=== PATIENT | male | born 1995 | race American Indian/Alaskan Native ===

== ENCOUNTER 2018-03-28 00:41 | Emergency (ER) | payer MEDICAID ==
[2018-03-28 00:54] VITALS: BMI 23.7
[2018-03-28] MEDS ORDERED: Oxycodone/Acetaminophen 5/325 mg Tab PO STA (01:24)
[2018-03-28 01:27] VITALS: TEMP 98.2
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
[2018-03-28] MEDS ORDERED: Lidocaine 2% Inj (20ml) INFIL STA (02:40)
[2018-03-28 04:35] VITALS: BP 135/70; PULSE 84; RESP 18; O2SAT 100
--- NOTE | 2018-03-28 09:34 | RAD ---
PROCEDURE: Radiographs of the right elbow. HISTORY: Trauma COMPARISON: No prior. FINDINGS: BONES: Normal. No fracture. JOINTS: Normal. No osteoarthritis. SOFT TISSUES: Normal. JOINT EFFUSION: None. OTHER FINDINGS: None. IMPRESSION: Unremarkable radiographs of the right elbow.
--- NOTE | 2018-03-28 09:36 | RAD ---
PROCEDURE: Left Hand Radiographs. HISTORY: fall COMPARISON: None. FINDINGS: BONES: Normal. No fracture. JOINTS: Normal. No osteoarthritic changes. SOFT TISSUES: Soft tissue injury, laceration adjacent to the 5th metacarpal. Punctate foreign bodies identified at the site of the laceration. OTHER FINDINGS: None. IMPRESSION: Soft tissue injury including laceration and punctate foreign bodies at the level of the midshaft left 5th metacarpal. No acute osseous abnormalities.
--- NOTE | 2018-03-28 09:37 | RAD ---
PROCEDURE: Right Knee Radiographs. HISTORY: fall COMPARISON: None. FINDINGS: BONES: Normal. No fracture. JOINTS: Normal. No osteoarthritis. JOINT EFFUSION: Small suprapatellar joint effusion. OTHER FINDINGS: None. IMPRESSION: Small suprapatellar joint effusion. No acute osseous or articular abnormalities.
--- NOTE | 2018-03-28 09:39 | RAD ---
PROCEDURE: Radiographs of the Chest and Right Ribs. HISTORY: fall COMPARISON: None available. TECHNIQUE: Frontal radiograph of the chest and multiple oblique radiographs of the right ribs were obtained. FINDINGS: RIGHT RIBS: No fracture or focal lesion visualized. LUNGS: Clear. PLEURA: No pneumothorax or pleural fluid. CARDIOVASCULAR: Normal sized heart. No pulmonary vascular congestion. OTHER FINDINGS: None. IMPRESSION: Unremarkable radiographs of the chest and right ribs. No right rib fracture.
--- NOTE | 2018-03-28 09:44 | RAD ---
PROCEDURE: Radiographs of the right tibia and fibula. HISTORY: fall COMPARISON: None available. TECHNIQUE: Frontal and lateral views obtained. FINDINGS: BONES: No fracture or destructive lesion. JOINT SPACES: Unremarkable. OTHER FINDINGS: Soft tissue swelling about the calf IMPRESSION: Soft tissue swelling without acute articular or osseous abnormality.
--- NOTE | 2018-03-28 09:46 | RAD ---
PROCEDURE: Right Wrist Radiographs. HISTORY: fall COMPARISON: None FINDINGS: BONES: Fracture involving the distal right radius with an intra-articular component. Additional fracture involving the hamate only seen on the lateral view. The finding is marked on the study for review. JOINTS: Normal. No dislocation. SOFT TISSUES: Soft tissue swelling attests to the acuity of the fracture. OTHER FINDINGS: None. IMPRESSION: Intra-articular fracture distal right radius. Avulsion fracture of the hamate.
== END 2018-03-28 04:33 | disposition home or self-care (01) ==
LOC: ED 00:41
DX: S52.571A Other intraarticular fracture of lower end of right radius, initial encounter for closed fracture (principal); S50.311A Abrasion of right elbow, initial encounter; S80.811A Abrasion, right lower leg, initial encounter; S60.512A Abrasion of left hand, initial encounter; S80.812A Abrasion, left lower leg, initial encounter; V18.4XXA Pedal cycle driver injured in noncollision transport accident in traffic accident, initial encounter; Y92.89 Other specified places as the place of occurrence of the external cause